=== PATIENT | male | born 1980 | race American Indian/Alaskan Native ===

== ENCOUNTER 2018-07-27 14:24 | Emergency (ER) | payer OTHER ==
[2018-07-27 14:45] VITALS: BP 148/98
--- NOTE | 2018-07-27 17:19 | Emergency Department Report ---
- General Chief complaint: Skin/Abscess/Foreign Body Stated complaint: FACIAL SWELLING Time Seen by Provider: 07/27/18 17:08 Source: patient Mode of arrival: Ambulatory Limitations: No Limitations - History of Present Illness Initial comments: abscess to left face and seen yesterday. given clindamycin tabs after a IM injection and bactroban. no fever or chills. presents today because he started having discharge from wound and some swelling complaint: abscess/boil - Related Data Previous Rx's Medication Instructions Recorded Last Taken Type Chlorhexidine Gluconate [Hibiclens] 10 ml TP BID #240 liquid 07/27/18 Unknown Rx Allergies Allergy/AdvReac Type Severity Reaction Status Date / Time No Known Allergies Allergy Unverified 07/27/18 14:45 Abscess Boil HPI - HPI Chief Complaint: Skin/Abscess/Foreign Body Stated Complaint: FACIAL SWELLING Time Seen by Provider: 07/27/18 17:08 Home Medications: Previous Rx's Medication Instructions Recorded Last Taken Type Chlorhexidine Gluconate [Hibiclens] 10 ml TP BID #240 liquid 07/27/18 Unknown Rx Allergies/Adverse Reactions: Allergies Allergy/AdvReac Type Severity Reaction Status Date / Time No Known Allergies Allergy Unverified 07/27/18 14:45 ED Review of Systems ROS: Stated complaint: FACIAL SWELLING Other details as noted in HPI ED Past Medical Hx - Past Medical History Previous Medical History?: No - Surgical History Past Surgical History?: No - Social History Smoking Status: Current Some Day Smoker Substance Use Type: None - Medications Home Medications: Home Medications Medication Instructions Recorded Confirmed Last Taken Type Chlorhexidine Gluconate [Hibiclens] 10 ml TP BID #240 liquid 07/27/18 Unknown Rx ED Physical Exam - General Limitations: No Limitations ED Course Vital Signs 07/27/18 14:43 Temperature 98.2 F Pulse Rate 87 Respiratory 18 Rate Blood Pressure 148/98 O2 Sat by Pulse 97 Oximetry Critical care attestation.: If time is entered above; I have spent that time in minutes in the direct care of this critically ill patient, excluding procedure time. ED Disposition Clinical Impression: History of drainage of abscess Disposition: DC-01 TO HOME OR SELFCARE Is pt being admited?: No Does the pt Need Aspirin: No Condition: Stable Instructions: Abscess (ED) Referrals: PRIMARY CARE, [Primary Care Provider] - 3-5 Days [facility] [Provider Group] - 3-5 Days
== END 2018-07-27 17:24 | disposition home or self-care (01) ==
LOC: ED 14:24
DX: L02.01 Cutaneous abscess of face (principal); F17.200 Nicotine dependence, unspecified, uncomplicated
CPT/HCPCS: 99282